=== PATIENT | male | born 1960 | race Caucasian/White ===

== ENCOUNTER 2024-10-31 19:04 | Emergency (ER) | payer OTHER, SELFPAY ==
[2024-10-31 20:17] VITALS: BP 123/81; PULSE 85; RESP 18; TEMP 36.6; O2SAT 98
--- NOTE | 2024-10-31 20:28 | XR_ITS ---
Examination:Right hip AP, lateral, AP pelvis 3 views Technique: Hip AP lateral, AP pelvis, 3 views Exam date and time:October 31, 20242120 hrs. Indications: Patient fell today with into the right hip, right hip pain. Findings: No right hip fracture or dislocation Left hip bones of the pelvis intact Impression: No acute hip or pelvic fracture.
--- NOTE | 2024-10-31 20:28 | XR_ITS ---
EXAMINATION: Ankle, right 3 views . Technique: Ankle AP, oblique, lateral 3 views Date and time of exam: 2100 hrs. Indications: Patient fell today with injury to the ankle, ankle pain. Findings: No acute fracture No ankle dislocation The entire posterior bony calcaneal spurs Impression: No acute fracture
--- NOTE | 2024-10-31 20:28 | XR_ITS ---
Examination: Foot, 6, 3 views Technique: AP, oblique, lateral views foot, 3 views Date and time of exam: October 31, 2024 2101 hrs. Indications: Patient fell today with injury to the foot, foot pain Findings: No acute fracture No dislocation No foreign body Impression: No acute fracture
--- NOTE | 2024-10-31 20:28 | XR_ITS ---
Examination: Knee, right , 3 views Technique: Knee AP, lateral, oblique 3 views Date and time of exam: October 31, 20246 hrs. Indications: Patient fell today with injury to the knee, knee pain Findings: Advanced tricompartment osteoarthritis No fracture or dislocation Impression: No acute fracture
--- NOTE | 2024-10-31 20:28 | XR_ITS ---
Examination: Hand, right 3 views Technique: Hand AP, oblique, lateral 3 views Date and time of exam: October 31, 2024 210 hrs. Indications: Patient fell today with injury to the hand, hand pain Findings: No acute fracture No dislocation No foreign body Impression: No acute fracture
--- NOTE | 2024-10-31 20:28 | XR_ITS ---
Examination: Wrist, right 3 views Technique: Wrist AP, oblique, lateral 3 views Date and time of exam: Or 2100 hrs. Indications: Patient fell today with injury to the wrist, wrist pain Findings: No acute fracture No dislocation Significant osteoarthritis first carpometacarpal joint Impression: No acute fracture
--- NOTE | 2024-10-31 20:28 | XR_ITS ---
Examination: Forearm, right, 2 views. Technique: Forearm, AP, lateral 2 views Date and time of exam: The second 2023 2100 hrs. Indications: Patient fell today with injury to the forearm, forearm pain. Findings: No fracture or dislocation No foreign body Impression: No fracture or dislocation
--- NOTE | 2024-10-31 20:28 | XR_ITS ---
Examination: Tibia-Fibula, right , 2 views Technique: Tibia-fibula AP lateral 2 views Date and time of exam: October 31, 2024 2115 hrs. Indications: Patient fell today with injury to the lower right leg, lower right leg pain Findings: Acute nondisplaced fracture proximal to mid fibular shaft Tibia intact Impression: Acute nondisplaced fracture proximal to mid fibular shaft
--- NOTE | 2024-10-31 20:28 | XR_ITS ---
Examination: CT brain head without contrast. 2-D sagittal coronal reconstructions Date and time of exam:October 31, 2024 at 2054 hrs. Indications: Patient fell today with injury to the head, head pain and dizziness CTDI: vol (mGy):57.3 DLP: (mGycm):1216 Technique: Multiple CT axial sections of the brain have been obtained, 5 mm slice thickness. Contrast has not been administered. 2-D sagittal, coronal reconstructions have been obtained Low dose protocols were performed. One or more of the following dose reduction techniques were used; automated exposure control, adjustment of the mA and/or KV according to patient size, use of iterative reconstruction technique. Findings: No significant ventricular enlargement. Intra-axial or extra-axial hemorrhage density is not seen. No mass effect or midline shift Basal cisterns are not remarkable. Fourth ventricle is midline. Cranial vault intact. Impression: Negative for acute hemorrhage, mass effect or midline shift
--- NOTE | 2024-10-31 20:28 | XR_ITS ---
Examination: Right femur 2 views Technique one AP lateral right femur 2 views Exam date and time: October 31, 2024 2124 hrs. Indications: Patient fell today with injury to the femur, femur pain. Findings: No hip fracture or hip dislocation Shaft of the femur intact Impression: No acute fracture
--- NOTE | 2024-10-31 20:28 | XR_ITS ---
Examination: CT cervical spine without contrast 2-D sagittal reconstructions 2-D coronal reconstructions 3-D reconstructions. Exam date and time:October 31, 20242054 hrs. Indications: Patient fell today with into the neck, neck pain CTDI:vol (mGy) 14.7 DLP: (mGycm) 390 Technique: Multiple 2 mm axial sections of the cervical spine have been obtained. The coronal and sagittal reconstructions have been obtained. 3-D reconstructions have been obtained. Low dose protocols were performed. One or more of the following dose reduction techniques were used; automated exposure control, adjustment of the mA and/or KV according to patient size, use of iterative reconstruction technique. Findings: Axial sections demonstrate intact base of the skull. C1 exhibit satisfactory relationship to the odontoid. No acute cervical vertebral body fracture seen. Alignment posterior spinous processes satisfactory. Impression: No acute cervical fracture.
--- NOTE | 2024-10-31 20:32 | PD.EDRME ---
Rapid Medical Screening Exam RME Arrival date/time: 10/31/24 19:04 63-year-old male presents emergency department complaining of right hip and entire right leg pain after heavy iron metal gate fell on top of him. Patient also has contusions and abrasion to right upper arm. Chief Complaint: Extremity Injury, Lower Time Seen by Provider: 10/31/24 19:59 Vital signs: Vital Signs Temperature 97.9 F 10/31/24 20:17 Pulse Rate 85 10/31/24 20:17 Respiratory Rate 18 10/31/24 20:17 Blood Pressure 123/81 10/31/24 20:17 Pulse Oximetry (%) 98 10/31/24 20:17 Oxygen Delivery Method Room Air 10/31/24 20:17 Vital signs reviewed by provider: Yes
[2024-10-31] MEDS: HYDROcodone/APAP 10/325 TAB PO (20:44)
--- NOTE | 2024-10-31 22:49 | EDNOTE_ITS ---
<Statement entered by Manuela Elizondo MD - 11/07/24 17:49> As co-signing physician, I was present and available for consult prn. I concur with the plan and care as documented by the midlevel provider. Lower Extremity Injury RME/HPI General Chief Complaint: Extremity Injury, Lower Stated Complaint: RIGHT LEG & ARM INJURY/PAIN POST FALLING IRON GATE Time Seen by Provider: 10/31/24 19:59 Source: patient Arrival date/time: 10/31/24 19:04 63-year-old male presents emergency department complaining of right hip and entire right leg pain after heavy iron metal gate fell on top of him. Patient also has contusions and abrasion to right upper arm. Mode of arrival: wheelchair Limitations: physical limitation RME / HPI RME / HPI Narrative: 10/31/24 19:04 63-year-old male presents emergency department complaining of right hip and entire right leg pain after heavy iron metal gate fell on top of him. Patient also has contusions and abrasion to right upper arm. Related Data Home Medications ?Medication ?Instructions ?Recorded ?Confirmed phentermine 37.5 mg capsule 37.5 mg PO QDAY 10/07/19 10/07/19 Previous Rx's ?Medication ?Instructions ?Recorded cyclobenzaprine 10 mg tablet 10 mg PO TID #12 tabs 10/07/19 naproxen 500 mg tablet 500 mg PO BID #20 tabs 10/07/19 hydrocodone 5 mg-acetaminophen 325 1 tab PO BID PRN pain #10 tabs 10/31/24 mg tablet ibuprofen 600 mg tablet 600 mg PO Q8H PRN pain #20 tabs 10/31/24 Allergies Allergy/AdvReac Type Severity Reaction Status Date / Time No Known Allergies Allergy Verified 10/31/24 19:06 Review of Systems Review of Systems Systems Reviewed: All systems reviewed, normal except as documented Constitutional Constitutional: Reports system reviewed and no additional complaints, except as documented, Denies body ache(s), Denies chills, Denies fever(s) and Reports headache(s) Eyes Eyes: Reports system reviewed and no additional complaints, except as documented and Denies change in vision ENT Ears, Nose, Mouth, and Throat: Reports system reviewed and no additional complaints, except as documented, Denies disequilibrium, Denies dizziness, Reports headache(s), Denies sore throat and Denies vertigo Cardiovascular Cardiovascular: Reports system reviewed and no additional complaints, except as documented, Denies chest pain and Denies dyspnea Respiratory Respiratory: Reports system reviewed and no additional complaints, except as documented, Denies chest congestion, Denies cough and Denies dyspnea Gastrointestinal Gastrointestinal: Reports system reviewed and no additional complaints, except as documented, Denies abdominal pain, Denies nausea and Denies vomiting Musculoskeletal Musculoskeletal: Reports system reviewed and no additional complaints, except as documented, Denies abnormal gait, Reports arthralgias, Reports limited range of motion and Reports radiating pain into limb Integumentary/Breasts Skin/Breast: Reports system reviewed and no additional complaints, except as documented, Denies erythema, Denies rash and Denies wounds Neurologic Neurologic: Reports system reviewed and no additional complaints, except as documented, Denies abnormal gait, Denies disequilibrium, Denies dizziness, Reports headache(s) and Denies vertigo Past Medical History Social History SMOKING STATUS: Never smoker ED Exam General Limitations: Present physical limitation General appearance: Present alert and in no apparent distress Head Head exam: Present atraumatic Eye Eye exam: Present normal appearance, PERRL and EOMI ENT ENT exam: Present normal exam, normal oropharynx and mucous membranes moist Neck Neck exam: Present normal inspection, full ROM and trachea midline Chest Chest inspection: Present normal inspection and symmetric chest wall rise Respiratory Respiratory exam: Present normal lung sounds bilaterally Cardiovascular Cardiovascular exam: Present regular rate, normal rhythm and normal heart sounds Abdominal Exam Abdominal exam: Present soft and normal bowel sounds Extremities Exam Extremities exam: Present normal inspection and full ROM Back Exam Back exam: Present normal inspection and full ROM Neurological Exam Neurological exam: Present alert, oriented X3 and CN II-XII intact Psychiatric Psychiatric exam: Present normal affect and normal mood Skin Skin exam: Present warm, dry, intact and normal color Course Quality Measures none Orders Category Date Time Status Crutches .NOW Care 10/31/24 22:47 Active Splint / Immobilizer STAT Care 10/31/24 22:[address] cervical spine wo con Stat Exams 10/31/24 20:[address] head/brain wo con Stat Exams 10/31/24 20:28 Completed XR ankle comp RT min 3V Stat Exams 10/31/24 20:28 Completed XR femur RT 2V Stat Exams 10/31/24 20:28 Completed XR foot comp RT min 3V Stat Exams 10/31/24 20:28 Completed XR forearm RT 2V Stat Exams 10/31/24 20:28 Completed XR hand comp RT min 3V Stat Exams 10/31/24 20:28 Completed XR hip RT w pelvis 2-3V Stat Exams 10/31/24 20:28 Completed XR knee RT 3V Stat Exams 10/31/24 20:28 Completed XR tibia fibula RT 2V Stat Exams 10/31/24 20:28 Completed XR wrist comp RT min 3V Stat Exams 10/31/24 20:28 Completed HYDROcodone/APAP 10/325 [[place] 10/325] Med 10/31/24 20:28 Discontinued 1 tab PO X1 ONE Vital Signs Vital signs: Vital Signs Temperature 97.9 F 10/31/24 20:17 Pulse Rate 85 10/31/24 20:17 Respiratory Rate 18 10/31/24 20:17 Blood Pressure 123/81 10/31/24 20:17 Pulse Oximetry (%) 98 10/31/24 20:17 Oxygen Delivery Method Room Air 10/31/24 20:17 98% room air within normal limits Procedures -ED Splint Fabrication: Clinician Made Type: Posterior Leg Reason for Splint: Improve Function, Optimal Positioning, Pain Management, Minimize Deformities and Prevent Deformities Site condition: Intact Circulation Distal to Splint: Yes Movement Distal to Splint: Yes Senation Distal to Splint: Yes Tolerance: Tolerates Well Extremity Injury, Lower MDM Narrative MDM Narrative:: 63-year-old male presents emergency department complaining of right hip and entire right leg pain after heavy iron metal gate fell on top of him. Patient also has contusions and abrasion to right upper arm. CT head and cervical spine unremarkable. All other x-rays were unremarkable other than right tib-fib which did show a midshaft nondisplaced fibular fracture. Patient placed on posterior short leg splint and given crutches and instructed to follow-up with Workmen's Compensation doctor and ask for referral to payer specialist. Patient is right lower extremity neurovascularly intact after splint was applied. Instructed to return to emergency department for any worsening symptoms or as needed. Patient data External records reviewed:: [facility] previous records Clinical information provided by:: patient Social determinants that could affect healthcare access:: none Patient has the following chronic illnesses:: See chart How is presenting disease/condition affected by chronic disease/condition?: uneffected by Evaluation data The following diagnostics were reviewed and interpreted by me:: radiology exam(s) Lab and/or radiology exams considered but not ordered:: Ordered Interpretation Summary: Interpreted by me Medications / Prescriptions Medications or Prescriptions considered but not ordered:: Ordered Medication administrations:: Medication Administration History Discontinued Medications Hydrocodone Bitart/Acetaminophen (Hydrocodone/Apap 10/325 Tab) 1 tab PO X1 ONE Stop: 10/31/24 20:29 Last Admin: 10/31/24 20:44 Dose: 1 tab Documented By: Given Consultations Consultation(s) initiated? (list below): No Diagnosis Extremity Injury, Lower Differential Diagnosis: ankle sprain and strain, acute internal derangement of knee, fracture of femur, fracture of hip and ankle fracture Most likely diagnosis given after review of the tests above:: Fracture closed fibular shaft Admission Indicated Admission indicated?: not indicated Admission Request Was there a request for admission?: No Disposition Plan Disposition Plan: Discharge Discharge Attestation Discharge Attestation: The patient and all family members were given an opportunity to ask questions and understood the discharge instructions. Discharge instructions specifically effects, indications for sooner follow up or return to the emergency department, and the expected course of current diagnosis. Patient condition: Stable Discharge Plan Plan Patient Disposition: HOME (Self Care) Disposition Comment: Stable Prescriptions/Referrals Prescriptions/Med Rec: New ibuprofen 600 mg tablet 600 mg PO Q8H PRN (Reason: pain) Qty: 20 0RF hydrocodone-acetaminophen 5-325 mg tablet 1 tab PO BID MDD 2 tabs PRN (Reason: pain) Qty: 10 0RF No Action phentermine 37.5 mg Capsule 37.5 mg PO QDAY naproxen 500 mg tablet 500 mg PO BID Qty: 20 0RF cyclobenzaprine 10 mg tablet 10 mg PO TID Qty: 12 0RF Problem List Clinical Impression: Fracture closed, fibula, shaft Patient/Caregiver Discharge Instructions Education Materials: How Bones Heal, ED Fracture, Lower Extremity Additional Instructions: Take medication as prescribed. Follow-up with primary care provider and request referral to payer specialist. Return to emergency department for any worsening symptoms or as needed. Print Language: [place] Stand Alone Forms: [facility] Award Info., Patient Portal Info Letter PA/MICHELLE Supervising Physician PA/MICHELLE Supervising Physician: Dr. Elizondo
== END 2024-11-01 00:28 | disposition home or self-care (01) ==
PROVIDERS: Emergency Provider Emergency Medicine; PCP Family Medicine
DX: S82.401A Unspecified fracture of shaft of right fibula, initial encounter for closed fracture (principal); S50.11XA Contusion of right forearm, initial encounter; S60.211A Contusion of right wrist, initial encounter; S60.221A Contusion of right hand, initial encounter; S40.811A Abrasion of right upper arm, initial encounter; S99.911A Unspecified injury of right ankle, initial encounter; S79.921A Unspecified injury of right thigh, initial encounter; S99.921A Unspecified injury of right foot, initial encounter; M25.551 Pain in right hip; S89.91XA Unspecified injury of right lower leg, initial encounter; S09.90XA Unspecified injury of head, initial encounter; M54.2 Cervicalgia; W20.8XXA Other cause of strike by thrown, projected or falling object, initial encounter
CPT/HCPCS: 29515; 70450; 72125; 73090; 73110; 73130; 73502; 73552; 73562; 73590; 73610; 73630; 99284; A9270

== ENCOUNTER → 2024-11-11 | Outpatient (CLI) | payer OTHER, SELFPAY ==
--- NOTE | 2024-11-11 13:00 | XR_ITS ---
Exam: MRI knee without contrast, right Date and time of exam: November 11, 2024 1447 hours Technique: Multiple axial, coronal, and sagittal sections on the knee have been obtained. T2-Weighted sagittal, fat-suppressed images, TR 3,500, TE 62, T2 weighted coronal fat-saturated images, TR 3,500, TE 62 Proton density sagittal sections, TR 1800, TE 31. T-1 weighted coronal images, TR 524, TE 13.0 Findings: The entire study is severely degraded by continual patient motion and by lack of the dedicated knee coil for this study, the patient's knee is 2 large for the standard knee coil There is truncation of the posterior horn medial meniscus The anterior cruciate ligament is not visualized There is severe narrowing of the medial joint space IMPRESSION: The entire study is severely limited secondary to patient motion Consider prestudy administration pain medication and repeating this study
== END | disposition home or self-care (01) ==
LOC: SMRI 12:37
PROVIDERS: PCP Family Medicine; Referring Provider Family Medicine; Visit Provider Family Medicine
DX: M23.91 Unspecified internal derangement of right knee (principal)
CPT/HCPCS: 73721

== ENCOUNTER → 2024-12-09 | Outpatient (CLI) | payer OTHER, SELFPAY ==
--- NOTE | 2024-12-09 | XR_ITS ---
Examination: Tibia-Fibula, right , 2 views Technique: Tibia-fibula AP lateral 2 views Date and time of exam: December 09, 2024 0725 hours INDICATIONS: Acute fibular fracture October 31, 2024 FINDINGS: Healing fracture proximal shaft of the fibula with stable and satisfactory alignment Old appearing deformity of the proximal tibia but clinical correlation advised IMPRESSION: Healing fracture fibular shaft with satisfactory alignment
== END | disposition home or self-care (01) ==
PROVIDERS: PCP Family Medicine; Referring Provider Physician Assistant; Visit Provider Physician Assistant
DX: S82.491D Other fracture of shaft of right fibula, subsequent encounter for closed fracture with routine healing (principal); X58.XXXD Exposure to other specified factors, subsequent encounter
CPT/HCPCS: 73590

== ENCOUNTER → 2024-12-30 | Outpatient (CLI) | payer OTHER, SELFPAY ==
--- NOTE | 2024-12-30 16:40 | XR_ITS ---
Examination: Tibia-Fibula, right , 2 views Technique: Tibia-fibula AP lateral 2 views Date and time of exam: December 30, 2024 1704 hours Comparison December 09, 2024 INDICATIONS: Acute fracture fibula October 31, 2024 FINDINGS: Partial healing fracture proximal fibular shaft Nondisplaced fracture mid to distal fibular shaft This fracture is not visible on the October 31, 2024 exam IMPRESSION: Partial healing fracture proximal fibular shaft More acute appearing fracture mid to distal fibular shaft with no significant callus formation Suggest continued follow-up lower leg films
== END | disposition home or self-care (01) ==
PROVIDERS: PCP Family Medicine; Referring Provider Family Medicine; Visit Provider Physician Assistant
DX: S82.491D Other fracture of shaft of right fibula, subsequent encounter for closed fracture with routine healing (principal); X58.XXXD Exposure to other specified factors, subsequent encounter
CPT/HCPCS: 73590

== ENCOUNTER → 2025-02-17 | Outpatient (CLI) | payer OTHER, SELFPAY ==
--- NOTE | 2025-02-17 12:56 | XR_ITS ---
Examination: Tibia-Fibula, right , 2 views Technique: Tibia-fibula AP lateral 2 views Date and time of exam: February 17, 2025 1348 hours Comparison December 30, 2024 INDICATIONS: History fibular shaft fracture FINDINGS: Partial healing fibular shaft fracture No fracture line is still evident Mild osteopenia IMPRESSION: Consider CT scan right lower leg follow-up to exclude nonunion at the fibular fracture site
== END | disposition home or self-care (01) ==
PROVIDERS: Referring Provider Family Medicine; Visit Provider Family Medicine
DX: S82.491D Other fracture of shaft of right fibula, subsequent encounter for closed fracture with routine healing (principal); X58.XXXD Exposure to other specified factors, subsequent encounter
CPT/HCPCS: 73590

== ENCOUNTER 2025-02-23 07:35 | Day surgery (SDC) | payer OTHER, SELFPAY ==
--- NOTE | 2025-02-22 15:16 | EKG_ITS ---
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
[2025-02-22 16:29] LABS: Basophils % (Auto) 0 % (0-2.5); Eosinophils # (Auto) 0.2 Thou/mm3 (0.0-0.5); Eosinophils % (Auto) 2 % (0-10); Immature Granulocytes % (Auto) 0 % (0-0); Immature Granulocytes Auto 0.04 Thou/mm3 (0.00-0.00); Lymphocytes # (Auto) 2.4 Thou/mm3 (1.0-4.8); Lymphocytes % (Auto) 24 % (10-50); Mean Corpuscular HGB Conc 33.3 g/dl (31.0-37.0); Mean Corpuscular Hemoglobin 27.8 pg (25.0-35.0); Mean Corpuscular Volume 83 fL (80-100); Monocytes # (Auto) 0.8 Thou/mm3 (0.0-0.8); Monocytes % (Auto) 8 % (0-12); Neutrophils # (Auto) 6.8 Thou/mm3 (1.8-7.7); Neutrophils % (Auto) 66 % (37-80); Nucleated Red Blood Cell % 0 /100 WBC (0); Platelet Count 258 Thou/mm3 (140-440); RDW Standard Deviation 41.9 fL (35.1-43.9); White Blood Count 10.3 Thou/mm3 (3.8-10.6)
[2025-02-22 16:36] LABS: Partial Thromboplastin Time 29.8 Seconds (22.0-36.0); Prothrombin Time 11.3 Seconds (9.0-12.2)
[2025-02-22 16:53] LABS: Anion Gap 9 (7-16); BUN/Creatinine Ratio 22 Ratio (12-20); Blood Urea Nitrogen 29 mg/dL (9-23); Carbon Dioxide 28.6 mMol/L (20.0-31.0); Chloride 104 mMol/L (98-107); Creatinine (Component) 1.3 mg/dL (0.6-1.3); Glucose 75 mg/dL (74-106); Osmolality,Calculated 287 (275-295); Potassium 4.2 mMol/L (3.4-5.1); Sodium 142 mMol/L (136-145); eGFR > 60 See Note
[2025-02-23] VITALS (12 sets, daily range): BP systolic 112–147; BP diastolic 73–105; PULSE 70–99; RESP 14–16; TEMP 36.2–36.6; O2SAT 95–100
[2025-02-23] MEDS: DIAZEPAM 5 MG TABLET PO (08:08)
--- NOTE | 2025-02-23 08:44 | ESOP_ITS ---
Cardiac Cath Procedure Procedure Narrative Date of the procedure 02/23/2025 Title of the procedure 1. Left heart catheterization 2. Left coronary angiogram 3. Right coronary angiogram 4. Left ventriculogram 5. Conscious sedation 6. Radiographic interpretation supervision 7. Ultrasound guidence for Right radial access Indication for the procedure This is a 64-year-old gentleman with past medical history of atrial fibrillation Currently planning to undergo Watchman procedure Cardiac catheter and cholangiogram recommended for preprocedure clearance Procedure This is done in the cardiac lab under continuous electrocardiographic monitoring Intermittent blood pressure monitoring right radial arterial access obtained using modified Seldinger technique 6 Congolese radial sheath was placed under ultrasound guidence TIG catheter was used for selective injection of the Left coronary artery TIG cather was used for selective injection of the Right coroanry artery TIG cather was used for LV gram Findings Hemodynamics Left ventricular systolic function is 55% Left ventricular end-diastolic pressure is 17 mmHg Gradient across the aortic valve is 0 mm gradient Coronary anatomy Right dominance Left main coronary artery is normal Left anterior descending artery is normal Diagonal vessel is showing luminal regularities Left circumflex artery is normal Obtuse marginal vessel is normal Right coronary artery is normal Posterior descending artery is showing luminal irregularities Conclusion No significant coronary lesion Recommendation Continue medical management
== END 2025-02-23 12:13 | disposition home or self-care (01) ==
PROVIDERS: PCP Family Medicine; Referring Provider Internal Medicine; Visit Provider Internal Medicine
PROC: (CPT 93458; principal; 2025-02-23 07:30)
DX: I25.118 Atherosclerotic heart disease of native coronary artery with other forms of angina pectoris (principal); I48.91 Unspecified atrial fibrillation; Z01.810 Encounter for preprocedural cardiovascular examination
CPT/HCPCS: 93458; 36415; 80048; 85025; 85610; 85730; 93005; 99152; A4216; A4649; C1769; C1887; C1894; J0171; J0461; J0583; J1643; J2250; J2310; J2371; J3010; J3490; Q9967; A9270; J2305

== ENCOUNTER → 2025-07-21 | Outpatient (CLI) | payer OTHER, SELFPAY ==
--- NOTE | 2025-07-21 | XR_ITS ---
EXAMINATION: Ankle, right 3 views . Technique: Ankle AP, oblique, lateral 3 views Date and time of exam: July 21, 2025 0754 hours INDICATIONS: Right ankle pain beginning 3 months ago, history fracture tibia fibula October 2024. FINDINGS: Moderate osteopenia. Moderate osteoarthritis tibiotalar joint No fracture or dislocation Ossification in the Achilles insertion 3 mm plantar bony calcaneal spur IMPRESSION: No fracture Moderate osteoarthritis tibiotalar joint
== END | disposition home or self-care (01) ==
LOC: CDIM 07:43
PROVIDERS: PCP Family Medicine; Referring Provider Family Medicine; Visit Provider Orthopaedic Surgery
DX: M19.071 Primary osteoarthritis, right ankle and foot (principal); S82.401S Unspecified fracture of shaft of right fibula, sequela; X58.XXXS Exposure to other specified factors, sequela
CPT/HCPCS: 73610

== ENCOUNTER → 2025-08-25 | Outpatient (CLI) | payer OTHER, SELFPAY ==
[2025-08-25 13:04] LABS: Basophils # (Auto) 0.1 Thou/mm3 (0.0-0.2); Basophils % (Auto) 1 % (0-2.5); Eosinophils # (Auto) 0.2 Thou/mm3 (0.0-0.5); Eosinophils % (Auto) 2 % (0-10); Hematocrit 45.4 % (41.0-53.0); Hemoglobin 15.0 g/dL (13.5-16.0); Immature Granulocytes Auto 0.03 Thou/mm3 (0.00-0.00); Lymphocytes # (Auto) 2.2 Thou/mm3 (1.0-4.8); Lymphocytes % (Auto) 24 % (10-50); Mean Corpuscular HGB Conc 33.0 g/dl (31.0-37.0); Mean Corpuscular Hemoglobin 28.1 pg (25.0-35.0); Mean Corpuscular Volume 85 fL (80-100); Monocytes # (Auto) 0.7 Thou/mm3 (0.0-0.8); Monocytes % (Auto) 8 % (0-12); Neutrophils # (Auto) 6.1 Thou/mm3 (1.8-7.7); Neutrophils % (Auto) 66 % (37-80); Nucleated Red Blood Cell # 0.00 Thou/mm3 (0.00-0.00); Nucleated Red Blood Cell % 0 /100 WBC (0); Platelet Count 241 Thou/mm3 (140-440); RDW Standard Deviation 42.6 fL (35.1-43.9); Red Blood Count 5.34 Miln/mm3 (4.50-5.90); White Blood Count 9.3 Thou/mm3 (3.8-10.6)
[2025-08-25 13:17] LABS: Albumin, Serum 4.2 gm/dL (3.4-4.8); Anion Gap 10 (7-16); BUN/Creatinine Ratio 23 Ratio (12-20); Blood Urea Nitrogen 23 mg/dL (9-23); Calcium 9.7 mg/dL (8.3-10.6); Calcium (Corrected) 9.7 mg/dL (8.5-10.1); Carbon Dioxide 27.3 mMol/L (20.0-31.0); Chloride 105 mMol/L (98-107); Creatinine (Component) 1.0 mg/dL (0.6-1.3); Glucose 100 mg/dL (74-106); Osmolality,Calculated 286 (275-295); Phosphorous 3.1 mg/dL (2.4-5.1); Potassium 3.7 mMol/L (3.4-5.1); Sodium 142 mMol/L (136-145); eGFR > 60 See Note
[2025-08-25 13:38] LABS: INR 1.1 (0.9-1.3); Prothrombin Time 11.5 Seconds (9.0-12.2)
== END | disposition home or self-care (01) ==
LOC: COPL 12:09
PROVIDERS: PCP Family Medicine; Referring Provider Internal Medicine Cardiovascular Disease; Visit Provider Internal Medicine Cardiovascular Disease
DX: I48.91 Unspecified atrial fibrillation (principal)
CPT/HCPCS: 36415; 80069; 85025; 85610